=== PATIENT | male | born 1945 | race Caucasian/White ===

== ENCOUNTER 2016-10-11 16:58 | Emergency (ER) | payer OTHER ==
[~2016-10-11] VITALS: Ht 172.7 cm; Wt 61.3 kg
[~2016-10-11 16:58] MED LIST: AMLO10TA2 PO; ATOR40TA78 PO; BUDE10.2 INH
[2016-10-11] MEDS ORDERED: ALBU8.5H3 PO (17:30)
[2016-10-11] MEDS ORDERED: HYDROcodone/APAP 5/325 TABLET ONE (18:46)
[2016-10-11] MEDS ORDERED: HYDROcodone/APAP 5/325 TABLET PO ONE (19:00)
[2016-10-11 19:37] VITALS: BP 122/58
== END 2016-10-11 20:48 | disposition home or self-care (01) ==
LOC: ED 20:00
DX: S39.013A Strain of muscle, fascia and tendon of pelvis, initial encounter (principal); M13.851 Other specified arthritis, right hip; X58.XXXA Exposure to other specified factors, initial encounter; Y93.89 Activity, other specified; Y92.89 Other specified places as the place of occurrence of the external cause; Y99.9 Unspecified external cause status; I10 Essential (primary) hypertension; Z87.891 Personal history of nicotine dependence
CPT/HCPCS: 76857; 76870; 81003; 99285

== ENCOUNTER → 2017-11-24 | Outpatient (CLI) | payer OTHER ==
[~2017-11-24] MED LIST changes: +ALBU8.5H8 PO; +OMNIPAQUE 350 MG/ML, 75ML BOTTLE ONE
[2017-11-24 13:22] LABS: CREATININE 0.88 mg/dL (0.7-1.3)
== END | disposition home or self-care (01) ==
LOC: RAD 12:26
PROVIDERS: ATTEND Otolaryngology
DX: C76.0 Malignant neoplasm of head, face and neck (principal); D10.39 Benign neoplasm of other parts of mouth; K13.79 Other lesions of oral mucosa; J43.2 Centrilobular emphysema
CPT/HCPCS: 36415; 70487; 71250; 82565; Q9967

== ENCOUNTER → 2017-12-13 | Outpatient (CLI) | payer OTHER ==
[~2017-12-13] VITALS: Ht 172.7 cm; Wt 65.9 kg
[~2017-12-13] MED LIST changes: -OMNIPAQUE 350 MG/ML, 75ML BOTTLE ONE
== END | disposition home or self-care (01) ==
LOC: STAR 11:00 → EDSTATUS 12-15 08:30
PROVIDERS: ATTEND Otolaryngology
DX: Z01.818 Encounter for other preprocedural examination (principal); D10.30 Benign neoplasm of unspecified part of mouth
CPT/HCPCS: 93005